=== PATIENT | female | born 1945 | race Caucasian/White ===

== ENCOUNTER 2016-12-21 19:03 | Emergency (ER) | payer MEDICARE ==
--- NOTE | 2016-12-21 20:10 | ED Physician Documentation ---
PD HPI ABD PAIN - Stated complaint Stated Complaint: ABD PX - Chief complaint Chief Complaint: Abd Pain - History obtained from History obtained from: Patient - History of Present Illness Timing - onset: Today Timing - duration: Days (1) Timing - details: Abrupt onset, Still present Quality: Cramping, Aching, Pain Location: Periumbilical, LLQ Radiation: Lower back Improved by: Laying still, Position. No: Eating Worsened by: Position, Palpation. No: Eating, Breathing Associated symptoms: Nausea, Diarrhea (loose today). No: Fever, Vomiting, Constipation Similar symptoms before: Has not had sx before Recently seen: Not recently seen Review of Systems Constitutional: denies: Fever, Chills Nose: denies: Rhinorrhea / runny nose, Congestion Throat: denies: Sore throat Cardiac: denies: Chest pain / pressure Respiratory: denies: Cough GI: reports: Abdominal Pain, Nausea. denies: Abdominal Swelling, Vomiting, Diarrhea : denies: Dysuria, Frequency Skin: denies: Rash, Lesions Musculoskeletal: denies: Extremity swelling Neurologic: reports: Generalized weakness. denies: Focal weakness, Numbness, Near syncope, Altered mental status Endocrine: denies: Weight loss, Easy bruising / bleeding PD PAST MEDICAL HISTORY - Past Medical History Past Medical History: Yes Cardiovascular: Hypertension, Atrial fibrillation - Past Surgical History Past Surgical History: Yes /POST CLOSER: Hysterectomy - Present Medications Home Medications: Ambulatory Orders Medication Instructions Recorded Confirmed Atorvastatin [Lipitor] 20 mg PO DAILY 12/21/16 12/21/16 Carvedilol [Coreg] 3.125 mg PO DAILY 12/21/16 12/21/16 Cephalexin [Keflex] 500 mg PO BID #14 capsule 12/21/16 HYDROcod/ACETAM 5/325 [[place] 5/325] 1 tab PO Q6H PRN #15 tablet 12/21/16 Losartan [Cozaar] 50 mg PO DAILY 12/21/16 12/21/16 Metronidazole [Flagyl] 500 mg PO BID #14 tablet 12/21/16 Ondansetron Odt [Zofran] 4 mg TL Q6H PRN #15 tablet 12/21/16 Verapamil [Calan] 240 mg PO DAILY 12/21/16 12/21/16 Warfarin [Coumadin] 2.5 mg PO DAILY 12/21/16 12/21/16 - Allergies Allergies/Adverse Reactions: Allergies Allergy/AdvReac Type Severity Reaction Status Date / Time Sulfa (Sulfonamide Allergy Unknown Verified 12/21/16 19:08 Antibiotics) - Social History Does the pt smoke?: No Smoking Status: Never smoker Does the pt drink ETOH?: Yes Does the pt have substance abuse?: No - Family History Family history: reports: Non contributory PD ED PE NORMAL - Vitals Vital signs reviewed: Yes - General General: Alert and oriented X 3, No acute distress, Well developed/nourished - HEENT HEENT: PERRL (nonicteric), Pharynx benign - Neck Neck: Supple, no meningeal sign, No adenopathy - Cardiac Cardiac: RRR, No murmur - Respiratory Respiratory: Clear bilaterally - Abdomen Abdomen: Normal bowel sounds, Soft, Non distended, No organomegaly, Other ( tender left abdomen lower with some guarding, but no percussion, rebound, nor referred tenderness. ) - Female Female : Deferred - Rectal Rectal: Deferred - Back Back: No CVA TTP - Derm Derm: Normal color, Warm and dry - Extremities Extremities: No tenderness to palpate, Normal ROM s pain, No edema, No calf tenderness / cord - Neuro Neuro: Alert and oriented X 3, No motor deficit, Normal speech Results - Vitals Vitals: Vital Signs - 24 hr 12/21/16 12/21/16 19:05 23:16 Temperature 36.6 C Heart Rate 85 79 Respiratory 16 16 Rate Blood Pressure 133/74 H 141/42 H O2 Saturation 97 99 Oxygen O2 Source Room air - Labs Labs: Laboratory Tests 12/21/16 12/21/16 12/21/16 20:33 20:33 20:33 WBC 18.6 H RBC 4.72 Hgb 14.3 Hct 42.5 MCV 90.1 MCH 30.4 MCHC 33.8 RDW 13.8 Plt Count 160 MPV 10.1 Neut # 17.2 H Lymph # 0.5 L Wirt # 0.9 Eos # 0.0 Baso # 0.0 Absolute Nucleated RBC 0.01 Nucleated RBCs 0.1 PT 29.8 H INR 2.6 H Sodium 135 Potassium 3.9 Chloride 103 Carbon Dioxide 24 Anion Gap 8.0 BUN 25 H Creatinine 0.8 Estimated GFR (MDRD) 71 L Glucose 152 H Calcium 9.1 Magnesium 1.9 Total Bilirubin 0.9 AST 27 ALT 24 Alkaline Phosphatase 83 Total Protein 7.0 Albumin 3.6 Globulin 3.4 Albumin/Globulin Ratio 1.1 Lipase 19 L Urine Color Urine Clarity Urine pH Ur Specific [place] Urine Protein Urine Glucose (UA) Urine Ketones Urine Occult Blood Urine Nitrite Urine Bilirubin Urine Urobilinogen Ur Leukocyte Esterase Urine RBC Urine WBC Ur Squamous Epith Cells Urine Bacteria Ur Microscopic Review Urine Culture Comments 12/21/16 22:00 WBC RBC Hgb Hct MCV MCH MCHC RDW Plt Count MPV Neut # Lymph # Wirt # Eos # Baso # Absolute Nucleated RBC Nucleated RBCs PT INR Sodium Potassium Chloride Carbon Dioxide Anion Gap BUN Creatinine Estimated GFR (MDRD) Glucose Calcium Magnesium Total Bilirubin AST ALT Alkaline Phosphatase Total Protein Albumin Globulin Albumin/Globulin Ratio Lipase Urine Color YELLOW Urine Clarity HAZY Urine pH 6.5 Ur Specific [place] 1.010 Urine Protein NEGATIVE Urine Glucose (UA) NEGATIVE Urine Ketones NEGATIVE Urine Occult Blood NEGATIVE Urine Nitrite POSITIVE H Urine Bilirubin NEGATIVE Urine Urobilinogen 0.2 (NORMAL) Ur Leukocyte Esterase NEGATIVE Urine RBC 0-5 Urine WBC 6-10 H Ur Squamous Epith Cells MOD Squamous H Urine Bacteria Moderate H Ur Microscopic Review INDICATED Urine Culture Comments NOT INDICATED - Rads (name of study) abd CT Radiology: Prelim report reviewed (area of colitis in descending colon and proximal sigmoid. ) PD MEDICAL DECISION MAKING - ED course Complexity details: reviewed results, re-evaluated patient (feeling better with meds and feels she can do outpatient. CT showing area of colitis. ), considered differential, d/w patient Departure - Departure Disposition: 01 Home, Self Care Clinical Impression: Colitis, Left sided abdominal pain Condition: Stable Record reviewed to determine appropriate education?: Yes Instructions: ED Diverticulitis Prescriptions: Metronidazole [Flagyl] 500 mg PO BID #14 tablet Cephalexin [Keflex] 500 mg PO BID #14 capsule HYDROcod/ACETAM 5/325 [[place] 5/325] 1 tab PO Q6H PRN #15 tablet PRN Reason: Pain Ondansetron Odt [Zofran] 4 mg TL Q6H PRN #15 tablet PRN Reason: Nausea / Vomiting Comments: Drink lots of fluids. Regular diet. Tylenol if needed for mild pains. Use hydrocodone if needed for worse pain. Ondansetron as needed for nausea. There is an area of colitis, infection of the colon, in the descending colon which is where your pain is. This is similar treated to diverticulitis and may actually originate in a small diverticulum anyway. The antibiotics used for this will affect your Coumadin level to some degree. The ones were using try to have less impact than others. However he should have your Coumadin level checked in for 5 days up to a week to make sure it is not gone too high. Presumptively you could consider holding every third dose of the Coumadin to adjust for it. Recheck if worse pain, generalized pain, fever, persistent vomiting, bloody stool or other concerns. Discharge Date/Time: 12/21/16 23:30
[2016-12-21] MEDS ORDERED: ONDANSETRON 4 MG/2 ML VIAL IVP STA (20:22)
[2016-12-21] MEDS ORDERED: SODIUM CHLORIDE 0.9% 1,000 ML IV ONE (20:22)
[2016-12-21] MEDS ORDERED: HYDROmorphone 1 MG/ML SYRINGE IVP STA (20:22)
[2016-12-21] MEDS ORDERED: HYDROmorphone 1 MG/ML SYRINGE ONE (20:37)
[2016-12-21] MEDS ORDERED: ONDANSETRON 4 MG/2 ML VIAL ONE (20:37)
[2016-12-21 20:47] LABS: BASOPHILS % (AUTO) 0.3 %; HCT - HEMATOCRIT 42.5 % (37.0-47.0); HGB - HEMOGLOBIN 14.3 g/dL (12.0-16.0); LYMPHOCYTES # (AUTO) 0.5 10^3/uL (1.5-3.5); LYMPHOCYTES % (AUTO) 2.6 %; MEAN CORPUSCULAR HEMOGLOBIN 30.4 pg (27.0-31.0); MEAN CORPUSCULAR HGB CONC 33.8 g/dL (32.0-36.0); MEAN CORPUSCULAR VOLUME 90.1 fL (81.0-99.0); MEAN PLATELET VOLUME 10.1 fL (7.9-10.8); MONOCYTES # (AUTO) 0.9 10^3/uL (0.0-1.0); NEUTROPHILS # (AUTO) 17.2 10^3/uL (1.5-6.6); NEUTROPHILS % (AUTO) 92.1 %; NUCLEATED RED BLOOD CELLS AUTO 0.1 /100WBC; RED BLOOD COUNT 4.72 10^6/uL (4.20-5.40); RED CELL DISTRIBUTION WIDTH 13.8 % (12.0-15.0); UNCORRECTED WHITE BLOOD COUNT 18.6 x10^3/uL; WHITE BLOOD COUNT 18.6 x10^3/uL (4.8-10.8)
[2016-12-21 20:54] LABS: INR 2.6 (0.8-1.2); PT - PROTHROMBIN TIME 29.8 secs (9.9-12.6)
[2016-12-21 21:00] LABS: ALBUMIN/GLOBULIN RATIO 1.1 (1.0-2.2); BILIRUBIN,TOTAL 0.9 mg/dL (0.2-1.0); CALCIUM 9.1 mg/dL (8.5-10.3); CREATININE 0.8 mg/dL (0.4-1.0); MAGNESIUM 1.9 mg/dL (1.7-2.8); POTASSIUM 3.9 mmol/L (3.5-5.0)
[2016-12-21] MEDS ORDERED: IOPAMIDOL-300 100 ML VIAL IVP ONE (21:29)
--- NOTE | 2016-12-21 21:48 | CT Preliminary Report ---
Exam: CT Abdomen/Pelvis W/ IMPRESSION: 1. Findings of acute colitis involving the descending colon and proximal sigmoid colon in the left lo wer quadrant. 2. No perforation, abscess or findings of high-grade bowel obstruction. [facility] SITE ID: [id number]
--- NOTE | 2016-12-21 21:51 | CT Report ---
EXAM: CT ABDOMEN AND PELVIS EXAM DATE: 12/21/2016 09:21 PM. CLINICAL HISTORY: Left abd pain today. COMPARISONS: None. TECHNIQUE: Routine helical CT imaging was performed through the abdomen and pelvis. IV contrast: 100 cc Isovue-300 IV. Enteric contrast: No. Reconstructions: Coronal and sagittal. In accordance with CT protocol optimization, one or more of the following dose reduction techniques w ere utilized for this exam: automated exposure control, adjustment of mA and/or KV based on patient s ize, or use of iterative reconstructive technique. FINDINGS: Lung Bases: Unremarkable. Liver: Normal. No masses. Gallbladder/Bile Ducts: Unremarkable. Spleen: Normal. Pancreas: Normal. Adrenal Glands: Normal. Kidneys: Normal. No masses or hydronephrosis. Peritoneal Cavity/Bowel: There is hyperenhancement and wall thickening of the descending colon and si gmoid colon in the left abdomen. There is adjacent fat stranding. There is stool in the descending co prosper. The rectum is decompressed. No free air or pneumatosis. No abscess. Pelvic Organs: Uterus is absent. Urinary bladder is only partially fluid-filled. Vasculature: No aneurysms or other significant abnormality. Bones: No significant abnormality. Other: None. IMPRESSION: 1. Findings of acute colitis involving the descending colon and proximal sigmoid colon in the left lo wer quadrant. 2. No perforation, abscess or findings of high-grade bowel obstruction. [facility] Referring Provider Line: [phone] SITE ID: [id number]
[2016-12-21] MEDS ORDERED: metroNIDAZOLE 500 MG/100 ML 100 ML IV ONE (22:05)
[2016-12-21] MEDS ORDERED: cefTRIAXone 1 GM VIAL IVP STA (22:05)
[2016-12-21 22:14] LABS: BILIRUBIN,URINE NEGATIVE (NEGATIVE); PH,URINE 6.5 PH (5.0-7.5)
[2016-12-21] MEDS ORDERED: cefTRIAXone 1 GM VIAL ONE (22:14)
[2016-12-21 22:17] LABS: UA w/ MICROSCOPIC CHARGE YES
[2016-12-21] MEDS ORDERED: metroNIDAZOLE 500 MG/100 ML 100 ML ONE (22:22)
[2016-12-21 22:27] LABS: UR CULTURE IF IND NOT INDICATED
[2016-12-21] MEDS ORDERED: HYDROcod/ACET 5/325 Prepack 6 PO ONE ×2 (22:45→23:09)
[2016-12-21] MEDS ORDERED: ONDANSETRON ODT 4 MG Prepack 2 TL PRN (22:45)
[2016-12-21] MEDS ORDERED: ONDANSETRON ODT 4 MG Prepack 2 TL ONE (23:08)
[2016-12-21 23:18] VITALS: BP 141/42
[2016-12-21] MEDS ORDERED: HYDROcod/ACETAM 5/325 MG TABLET PO STA (23:27)
[2016-12-21] MEDS ORDERED: HYDROcod/ACETAM 5/325 MG TABLET ONE (23:31)
== END 2016-12-21 23:30 | disposition home or self-care (01) ==
LOC: ED 19:03
DX: K52.9 Noninfective gastroenteritis and colitis, unspecified (principal); R10.32 Left lower quadrant pain; I10 Essential (primary) hypertension; I48.91 Unspecified atrial fibrillation; Z79.01 Long term (current) use of anticoagulants
CPT/HCPCS: 36415; 74177; 80053; 81001; 83690; 83735; 85025; 85610; 96365; 96375; 99283; 99285; A9270; J1170; Q9967; 81003; 87086